=== PATIENT | male | born 1965 | race African-American/Black ===

== ENCOUNTER 2020-05-08 13:52 | Emergency (ER) | payer MEDICAID, OTHER ==
[~2020-05-08] VITALS: Ht 200.7 cm; Wt 102.1 kg
--- NOTE | 2020-05-08 14:30 | NUR ---
PT SELF PRESENT TO ED AMBULATORY TO ER BED 15, C/O SI W/ PLAN TO RUN INTO TRAFFIC OR HANG HIMSELF. STABLE VITALS. COOPERATIVE TO STAFF. SITTER AT BEDSIDE. AWAITING MD SPARKS.
--- NOTE | 2020-05-08 14:59 | NUR ---
DR LESTER AT BEDSIDE FOR EVAL.
--- NOTE | 2020-05-08 15:00 | NUR ---
BENZOL OPERATOR AT BEDSIDE FOR BLOOD DRAW
[2020-05-08 15:22] LABS: BASOPHILS % (AUTO) 0.8 % (0.0-2.0); EOSINOPHILS % (AUTO) 2.6 % (0.0-6.0); HEMATOCRIT 29 % (39-51); HEMOGLOBIN 9.6 g/dL (13.5-17.5); LYMPHOCYTES # (AUTO) 1.3 /CMM (0.8-4.8); LYMPHOCYTES % (AUTO) 21.9 % (20.0-44.0); MEAN CORPUSCULAR HGB CONC 33 g/dl (31.0-36.0); MEAN CORPUSCULAR VOLUME 91 fL (80-96); MONOCYTES # (AUTO) 0.6 /CMM (0.1-1.30); MONOCYTES % (AUTO) 9.5 % (2.0-12.0); NEUTROPHILS % (AUTO) 65.2 % (43.0-81.0); PLATELET COUNT (AUTO) 288 /CMM (150-450); RED BLOOD CELL COUNT(AUTO) 3.13 MIL/uL (4.5-6.0); WHITE BLOOD COUNT (AUTO) 6.1 K/uL (4.3-11.0)
[2020-05-08 15:28] LABS: CALCIUM, SERUM 8.4 mg/dL (8.5-10.1); CARBON DIOXIDE 31 mmol/L (21-32); CHLORIDE 100 mmol/L (98-107); CREATININE 0.9 mg/dL (0.6-1.3); GLUCOSE 96 mg/dL (74-106); POTASSIUM 3.9 mmol/L (3.5-5.1); SODIUM SERUM 136 mmol/L (136-145); UREA NITROGEN, BLOOD 9 mg/dL (7-18)
[2020-05-08 15:41] LABS: ALANINE AMINOTRANSFERASE 24 U/L (12-78); ALBUMIN 2.5 g/dL (3.4-5.0); ALCOHOL, BLOOD < 3 mg/dL (0-0); ALKALINE PHOSPHATASE 118 U/L (46-116); ASPARTATE AMINOTRANSFERASE 34 U/L (15-37); BILIRUBIN,DIRECT 0.2 mg/dL (0.0-0.2); BILIRUBIN,TOTAL 0.4 mg/dL (0.2-1.0); TOTAL PROTEIN, SERUM 7.4 g/dL (6.4-8.2)
[2020-05-08 15:42] LABS: ACETAMINOPHEN < 2 ug/ml (10-30); SALICYLATE < 2.8 mg/dL (2.8-20.0)
[2020-05-08 18:54] LABS: APPEARANCE,URINE Clear (CLEAR); BILIRUBIN,URINE SMALL (NEGATIVE); BLOOD, URINE Negative Ery/uL (NEGATIVE); COLOR,URINE Yellow (YELLOW); KETONES,URINE Trace (NEGATIVE); LEUKOCYTE ESTERASE ,URINE Negative (NEGATIVE); NITRITE, URINE Negative (NEGATIVE); PH,URINE 5.5 (5.0-8.0); PROTEIN,URINE Trace mg/dl (NEGATIVE); UGLUCOSE Negative (NEGATIVE); UROBILINOGEN,URINE 0.2 EU/dL (0.2)
[2020-05-08 19:02] LABS: BACTERIA,URINE Few /HPF (None Seen); MUCUS,URINE Moderate /LPF (None Seen); RBC,URINE 0-2 /HPF (0-2); SQUAMOUS EPITHELIAL CELL,UR Few /HPF (None Seen); URINE AMORPHOUS URATE Few /HPF (None Seen); WBC,URINE 0-2 /HPF (0-3)
--- NOTE | 2020-05-09 04:26 | NUR ---
Pt accepted to [facility] by Dr Tadeo. # for report [phone] Addendum: 05/09/20 at 0434 by CBATACLAN Pt accepted to [facility] by Dr Tadeo. # for report [phone]. room 60-A
--- NOTE | 2020-05-09 04:33 | NUR ---
Report given to Nicci AUSTIN for continuation of care.
--- NOTE | 2020-05-09 04:35 | NUR ---
Called rafa for tx eta of [id number] was given.
--- NOTE | 2020-05-09 05:49 | NUR ---
PATIENT IS AWAKE. PATIENT IS AMBULATORY WITH A STEADY GAIT. PATIENT ASKS, "CAN I HAVE SOME FOOD BECAUSE I AM REALLY HUNGRY."
--- NOTE | 2020-05-09 07:44 | NUR ---
report given to emt.
[2020-05-09 07:49] VITALS: BP 161/91
--- NOTE | 2020-05-09 07:49 | NUR ---
[facility]. Written and verbal after care instructions given. Patient verbalizes understanding of instruction.
== END 2020-05-09 07:50 ==
LOC: ER 14:19
DX: R45.851 Suicidal ideations (principal); I10 Essential (primary) hypertension; F20.0 Paranoid schizophrenia; Z59.0 Homelessness; Z60.2 Problems related to living alone
CPT/HCPCS: 36415; 80048; 80076; 80305; 80307; 80329; 81001; 85025; 99285; G0480; 81000-TC

== ENCOUNTER 2020-11-07 14:47 | Emergency (ER) | payer OTHER ==
[~2020-11-07] VITALS: Ht 200.7 cm; Wt 102.5 kg
--- NOTE | 2020-11-07 15:58 | NUR ---
Tread Cutter consult requested by net finisher Gener. Patient is a 55 year-old male. Patient reported that he came to [facility] ED for medical clearance to undergo voluntary psychiatric hospitalization at [facility]. Patient reports that he is homeless and has been homeless for a year and a half. Patient reports that he has a long-term bilingual patient support caseworker to assist in finding permanent placement. Patient did not want to provide this SW with more information regarding his housing situation. Patient reports that he was diagnosed with Schizophrenia and Severe Depression disorder. Patient reports that it has been approximately 2-3 weeks that he has not taken his medications because his prescription ran out. Patient reports visual hallucinations "on and off, telling me to kill myself" and patient denied visual hallucinations. Patient reported current suicidal ideation to run into traffic. Patient denied homicidal ideation. Patient and this SW discussed voluntary psychiatric hospitalization and patient was agreeable. SW and patient discussed voluntary psychiatric hospitalization; patient was in agreement for voluntary hospitalization. SW discussed referral option to [facility], patient declined this referral. Patient informed this SW that he would like to be referred to [facility] instead. SW acknowledge patients request and SW will fax over information to [facility]. Patient and SW discussed the need for homeless community resources and patient stated he would like to be given this information at discharge and not at this time. Patient and SW discussed the use of alcohol, drug, and ciggarrette use; Patient denied use. SW will place a copy of resources in patient's medical chart to be given at time of transfer. SW asked patient to sign homeless patient waiver form and patient also asked this SW to have him sign at the time of discharge. SW will place patient homeless waiver form in patient's chart for discharge. Patient was calm and cooperative throughout this assessment. Patient made appropriate eye contact and patients thought process was clear and concise. Plan: This SW to fax clinicals to Zev (cell) at [facility] Intake, fax number . This social services assistant will wait to hear back from [facility] intake regarding status of referral. This social services assistant will follow-up with [facility] if status update is not provided. Once accepted, patient to be transferred to [facility] by ambulance.
--- NOTE | 2020-11-07 16:09 | NUR ---
SW placed copy of homeless resources in patient's chart along with homeless patient waiver form to be completed at time of discharge per patient's request. No further SS interventions are needed at this time. Homeless community resources include the following: Winter Shelters: [facility] [place] [facility] [address] [place] [address] [address] [place]; [facility] [place] [employer] [address], [facility], [address] [address] [place]; [facility] the [place]* [facility] Confidential (please call for location) [address]; [facility] [address] [place] [address] [address] [place]; [facility] [place] [facility] [address] [facility] [address] [address] 15 Women; [facility] [address] [facility] [address] [address] [place]; First To Serve* [facility] [address] [facility], [address] [address] [place]; [facility] [address], [address] 20 Women; Home At Last [facility] [address] [facility], [address] [address]; [facility] [address], [address] 20 Women; Home At Last [facility] [address] [facility], [address] [address]; Home at Last [facility] [address] [facility], [address] 20 Males; Home At Last [address] [place] [address] [address] [facility] , [address] 20 CHARLENE; [facility] [place] [facility] [address] [address] 80 [place]; Winter Detention Program Sites Transportation picker box operator at [facility] (near the Gas Station) - [facility] [place] [address] Time: 3:30p.m. to 4:15p.m. and [facility] at [address] [facility] [address] Time: 5:00p.m. No walk-ins allowed. Individuals must be picked up at [facility] ([address] [address]) to access the site. Transportation by bus. Substance Abuse resources provided included: [place] Substance Abuse Self-Helpline ([facility]) ; CRI -HELP [address] [facility]. [place] [address] ; [facility] [address] [facility] [address] ; [facility] Rehabilitation [facility] [address] [facility] [phone] ; [facility] [address] [id number] ; [facility] [address] Shimon Briseno [facility] [address] ; [facility] [address] [facility] [address] ; [facility] Substance Abuse Helpline([facility])-[facility] ; [facility] ; [facility] [place]; Cri-Help [place]; [facility] Shimon Briseno; [facility] [facility]; [place]; [facility] Treatment [place]; [facility], [facility]. [place]; Alcoholics Anonymous -SFV; Nq-Eeck-Qjzjake ; Marijuana Anonymous -SFV; Narcotics Anonymous www.na.org. Hygiene: [facility]: [address] [place] ; [facility] [address] [facility] [place] ; [facility] [address], [place] . Food Resources: [place] [facility] Pant[facility] at [facility]- [address] [place]; Meet Each Need with Dignity ([facility]) [address] [place]; [facility] Food Pantry 5692 [facility]; [facility] [address] [facility]. Mental Health resources provided: [facility] [address] [place], [place] [address] ; [facility] Mental Health [place] [address] [facility] [address], [place], [place] [id number] ; [place] [facility] [address] [place], [place] [phone] ; [facility] [address] [place], [place] [address] Healthcare Clinics: [facility] [address] [facility], [address] [place]. [place] ; [facility] [address] [facility] [address] [place] [address]; [facility] [address] [facility]. [place] [phone]
[2020-11-07 16:21] LABS: BASOPHILS % (AUTO) 0.9 % (0.0-2.0); EOSINOPHILS % (AUTO) 0.1 % (0.0-6.0); HEMATOCRIT 38 % (39-51); HEMOGLOBIN 12.5 g/dL (13.5-17.5); LYMPHOCYTES # (AUTO) 0.8 /CMM (0.8-4.8); LYMPHOCYTES % (AUTO) 39.4 % (20.0-44.0); MEAN CORPUSCULAR HGB CONC 33 g/dl (31.0-36.0); MEAN CORPUSCULAR VOLUME 94 fL (80-96); MONOCYTES # (AUTO) 0.3 /CMM (0.1-1.30); MONOCYTES % (AUTO) 14.8 % (2.0-12.0); NEUTROPHILS # (AUTO) 0.9 /CMM (1.8-8.9); NEUTROPHILS % (AUTO) 44.8 % (43.0-81.0); PLATELET COUNT (AUTO) 203 /CMM (150-450); WHITE BLOOD COUNT (AUTO) 2.1 K/uL (4.3-11.0)
[2020-11-07 16:35] LABS: ALANINE AMINOTRANSFERASE 32 U/L (12-78); ALBUMIN 3.3 g/dL (3.4-5.0); ALCOHOL, BLOOD 4 mg/dL (0-0); ALKALINE PHOSPHATASE 74 U/L (46-116); ASPARTATE AMINOTRANSFERASE 39 U/L (15-37); BILIRUBIN,DIRECT 0.2 mg/dL (0.0-0.2); BILIRUBIN,TOTAL 0.3 mg/dL (0.2-1.0); CALCIUM, SERUM 8.3 mg/dL (8.5-10.1); CARBON DIOXIDE 32 mmol/L (21-32); CHLORIDE 101 mmol/L (98-107); CREATININE 1.1 mg/dL (0.6-1.3); GLUCOSE 130 mg/dL (74-106); POTASSIUM 3.4 mmol/L (3.5-5.1); SODIUM SERUM 138 mmol/L (136-145); TOTAL PROTEIN, SERUM 7.4 g/dL (6.4-8.2); UREA NITROGEN, BLOOD 16 mg/dL (7-18)
[2020-11-07 16:39] LABS: ACETAMINOPHEN < 2 ug/ml (10-30)
--- NOTE | 2020-11-07 16:50 | NUR ---
AVERY faxed clinicals to [facility] intake . AVERY informed ED EN Damaris regarding pending COVID swab. ED RN Damaris informed this SW swab will be completed. Plan: ED Staff to refax clinicals to [facility] when COVID results returns from lab.
[2020-11-07 17:09] LABS: LYMPHOCYTES % (MANUAL) 34 % (16-48); MONOCYTES % (MANUAL) 12 % (0-11.0); NEUTROPHILS % (MANUAL) 54 (42-76)
--- NOTE | 2020-11-07 18:41 | NUR ---
FAXED FACESHEET AND CLINICALS TO [facility]REG [facility]
[2020-11-07] MEDS ORDERED: LIDOCAINE 2% JEL UROJET 10 ML MM ONE (18:58)
[2020-11-07 19:19] LABS: BILIRUBIN,URINE Negative (NEGATIVE); BLOOD, URINE Trace-intact Ery/uL (NEGATIVE); COLOR,URINE YELLOW (YELLOW); LEUKOCYTE ESTERASE ,URINE Negative (NEGATIVE); NITRITE, URINE Negative (NEGATIVE); PROTEIN,URINE Negative (NEGATIVE); UGLUCOSE Negative (NEGATIVE)
--- NOTE | 2020-11-07 19:29 | NUR ---
COVID POSITIVE, PER LAB.
[2020-11-07 19:33] LABS: BACTERIA,URINE Few /HPF (None Seen); SQUAMOUS EPITHELIAL CELL,UR Few /HPF (None Seen); WBC,URINE 0-2 /HPF (0-3)
--- NOTE | 2020-11-07 20:28 | NUR ---
[facility] INTAKE NOTIFIED OF COVID RESULT.
--- NOTE | 2020-11-07 22:54 | NUR ---
PER MITZY GIORDANO INTAKE, WILL CALL BACK WITH BED
--- NOTE | 2020-11-07 23:01 | NUR ---
TRANSFER INFO: PT GOING [facility] ACCEPTED BY DR URENA AND DR GURROLA, TO UNIT 4 (COVID+ PSYCH UNIT) RN FOR REPORT [phone] EXT [phone] (PER MARTA FORRESTER)
--- NOTE | 2020-11-07 23:26 | NUR ---
CALLED [facility] FOR TRANSPORT RES#[id number]
--- NOTE | 2020-11-08 00:34 | NUR ---
TRANSPORT ETA 0[facility].
--- NOTE | 2020-11-08 00:42 | NUR ---
REPORT CALLED TO [facility]. AWAITING TRANSPORT.
--- NOTE | 2020-11-08 01:07 | NUR ---
REPORT GIVEN TO EMT TRANSPORT.
[2020-11-08 01:13] VITALS: BP 144/98
== END 2020-11-08 01:16 ==
LOC: ER 14:49
DX: R45.851 Suicidal ideations (principal); U07.1 COVID-19; F16.10 Hallucinogen abuse, uncomplicated; I10 Essential (primary) hypertension; F20.0 Paranoid schizophrenia
CPT/HCPCS: 36415; 80048; 80076; 80299; 80307; 80320; 81001; 85007; 85025; 87426; 99285; C9803; J3490; G0480